=== PATIENT | female | born 1945 | race Caucasian/White ===

== ENCOUNTER 2017-10-29 10:29 | Emergency (ER) | payer MEDICARE, BC ==
[2017-10-29 12:45] LABS: HEMATOCRIT 38.5 % (36.0-47.0); MEAN CORPUSCULAR HEMOGLOBIN 30.2 pg (27.0-33.0); MEAN CORPUSCULAR HGB CONC 33.8 g/dl (32.0-36.5); MEAN CORPUSCULAR VOLUME 89.5 fl (80.0-96.0); PLATELET COUNT, AUTOMATED 220 10^3/uL (150-450); RED CELL DISTRIBUTION WIDTH 13.3 % (11.5-14.5); WHITE BLOOD COUNT 5.2 10^3/uL (4.0-10.0)
[2017-10-29 13:18] LABS: ANION GAP 8 MEQ/L (8-16); BLOOD UREA NITROGEN 17 MG/DL (7-18); CALCIUM LEVEL 9.2 MG/DL (8.8-10.2); CARBON DIOXIDE LEVEL 29 MEQ/L (21-32); CHLORIDE LEVEL 104 MEQ/L (98-107); CREATININE FOR GFR 0.52 MG/DL (0.55-1.30); GLOMERULAR FILTRATION RATE > 60.0 (>39); GLUCOSE, FASTING 92 MG/DL (70-100); POTASSIUM SERUM 3.6 MEQ/L (3.5-5.1); SODIUM LEVEL 141 MEQ/L (136-145)
[2017-10-29] MEDS: SPIRONOLACTONE 25 MG TAB PO (13:38)
[2017-10-29] MEDS: hydroCHLOROthiazide 25 MG TAB PO (13:38)
== END 2017-10-29 14:30 | disposition home or self-care (01) ==
LOC: M ED 10:29
DX: I10 Essential (primary) hypertension (principal); R94.31 Abnormal electrocardiogram [ECG] [EKG]; E78.9 Disorder of lipoprotein metabolism, unspecified; K58.9 Irritable bowel syndrome, unspecified; Z88.8 Allergy status to other drugs, medicaments and biological substances; Z79.899 Other long term (current) drug therapy
CPT/HCPCS: 93005

== ENCOUNTER 2017-11-21 23:01 | Emergency (ER) | payer MEDICARE, BC ==
[2017-11-22] MEDS: NORCO 5/325MG TABLET (BULK FOR ED) PO (01:29)
[2017-11-22] MEDS: NORCO, ANEXSIA 5/325MG TABLET (HYDROcodone/ACETAMINOPHEN) PO (01:29)
== END 2017-11-22 02:10 | disposition home or self-care (01) ==
LOC: M ED 23:01
DX: S82.201A Unspecified fracture of shaft of right tibia, initial encounter for closed fracture (principal); S82.401A Unspecified fracture of shaft of right fibula, initial encounter for closed fracture; X58.XXXA Exposure to other specified factors, initial encounter; Y92.099 Unspecified place in other non-institutional residence as the place of occurrence of the external cause; Y93.9 Activity, unspecified; Y99.9 Unspecified external cause status; I10 Essential (primary) hypertension; K21.9 Gastro-esophageal reflux disease without esophagitis; Z79.899 Other long term (current) drug therapy; Z88.8 Allergy status to other drugs, medicaments and biological substances
CPT/HCPCS: 73590

== ENCOUNTER → 2018-03-18 | Outpatient (CLI) | payer MEDICARE, BC | LOC: M WHC 11:03 | DX: Z12.31 Encounter for screening mammogram for malignant neoplasm of breast (principal); Z78.0 Asymptomatic menopausal state; Z92.89 Personal history of other medical treatment; Z92.23 Personal history of estrogen therapy; Z80.3 Family history of malignant neoplasm of breast | CPT/HCPCS: 77067 ==

== ENCOUNTER 2018-03-24 06:31 | Day surgery (SDC) | payer MEDICARE, BC ==
[2018-03-24] MEDS ORDERED: TETRACAINE 0.5% OPHTH SOLN 4ML As Ordered (06:51)
[2018-03-24] MEDS ORDERED: TOBRADEX OPHTH OINT 3.5 GM As Ordered (06:51)
[2018-03-24] MEDS: LIDOCAINE 3.5 % 1ML OPHTH TOPICAL GEL OU (07:17)
[2018-03-24] MEDS: SODIUM BICARBONATE 8.4% INJ 50MEQ 50 ML VIAL As Ordered (08:16)
[2018-03-24] MEDS: LIDOCAINE 2% W/EPIN INJ 20ML **PRES FREE As Ordered (08:16)
[2018-03-24] MEDS ORDERED: fentaNYL 100 MCG/2 ML INJECTION (J3010) As Ordered (08:18)
[2018-03-24] MEDS ORDERED: PROPOFOL 200 MG/20 ML VIAL As Ordered (08:18)
[2018-03-24] MEDS ORDERED: MIDAZOLAM INJ 2 MG/2 ML VIAL (J2250) As Ordered (08:18)
== END 2018-03-24 09:50 | disposition home or self-care (01) ==
LOC: M SDC 09:50
DX: H02.834 Dermatochalasis of left upper eyelid (principal); H02.831 Dermatochalasis of right upper eyelid; I10 Essential (primary) hypertension; E78.5 Hyperlipidemia, unspecified; K21.9 Gastro-esophageal reflux disease without esophagitis; F41.9 Anxiety disorder, unspecified; S82.201D Unspecified fracture of shaft of right tibia, subsequent encounter for closed fracture with routine healing; S82.401D Unspecified fracture of shaft of right fibula, subsequent encounter for closed fracture with routine healing; R80.9 Proteinuria, unspecified; I72.2 Aneurysm of renal artery; Z88.8 Allergy status to other drugs, medicaments and biological substances; Z79.899 Other long term (current) drug therapy; Z90.710 Acquired absence of both cervix and uterus; Z87.448 Personal history of other diseases of urinary system
CPT/HCPCS: 15823

== ENCOUNTER → 2018-06-17 | Outpatient (CLI) | payer MEDICARE, BC | LOC: M WHC 11:30 | DX: Z13.820 Encounter for screening for osteoporosis (principal); M85.851 Other specified disorders of bone density and structure, right thigh; M85.852 Other specified disorders of bone density and structure, left thigh; M85.88 Other specified disorders of bone density and structure, other site | CPT/HCPCS: 77080 ==

== ENCOUNTER → 2019-02-17 | Outpatient (CLI) | payer MEDICARE, BC ==
[~2019-02-17] MED LIST: ATOR40TA75 PO; CALC-190 PO; CALCLIQ4 PO; KLOR20TA42 PO; MULT1TAB18 PO; NEXI40CA PO; SPIR1TAB34 PO; STEL45IN; VITA100T51 PO; [UNRECOGNIZED DRUG - CODE] SL; [UNRECOGNIZED DRUG - OTHER] IM
--- NOTE | 2019-02-17 13:12 | REPMRS ---
Patient History The patient states she had a clinical breast exam in 02/2019. Family history of breast cancer at age 50 or over in maternal grandmother. Reductions of both breasts, 2005. Took estrogen for 7 years. 3D TOMOSYNTHESIS WAS PERFORMED. [facility] for [facility]%. Digital Woman Screen Mammo: February 17, 2019 - Exam #: [id number] Bilateral CC and MLO view(s) were taken. Technologist: Felecia Chavira, Technologist Prior study comparison: March 18, 2018, bilateral digital woman screen mammo performed at [facility]. 2014, bilateral digital mammo screening bilat, performed at [facility]. FINDINGS: There are scattered fibroglandular densities. There has been no change in the appearance of the mammogram from the prior studies. There is a mild amount of residual fibroglandular tissue which is fairly symmetric. There is no interval development of dominant mass, architectural distortion, or clustered microcalcification suggestive of malignancy. Assessment: BI-RADS/ACR category 1 mammogram. Negative Mammogram. Recommendation Routine screening mammogram in 1 year (for women over age 40). This mammogram was interpreted with the aid of an FDA-approved computer-aided dectection system. Electronically Signed By: Oscar Coy MD 02/17/19 [id number]
== END ==
LOC: M WHC 10:46
PROVIDERS: ATTEND Nurse Practitioner Women's Health
DX: Z12.31 Encounter for screening mammogram for malignant neoplasm of breast (principal); Z80.3 Family history of malignant neoplasm of breast; Z98.890 Other specified postprocedural states; Z92.23 Personal history of estrogen therapy
CPT/HCPCS: 77063; 77067; G0463

== ENCOUNTER 2020-11-19 17:56 | Emergency (ER) | payer MEDICARE, BC ==
[~2020-11-19] VITALS: Ht 160 cm; Wt 68.2 kg
[2020-11-19] MEDS ORDERED: MORPHINE 2 MG/ML 1ML VIAL (J2270) IV ONE (18:50)
--- NOTE | 2020-11-19 19:10 | REP ---
INDICATION: FALL, DEFORMITY COMPARISON: None. TECHNIQUE: Three views left shoulder. FINDINGS: There is a fracture of the left humeral head neck with slight displacement. There is no other evidence of acute fracture or dislocation. IMPRESSION: There is a fracture of the left humeral head neck with slight displacement. <Electronically signed by Oscar Coy > 11/19/20 [id number]
[2020-11-19] MEDS ORDERED: NORCO 5/325MG TABLET (BULK FOR ED) PO ONE (20:10)
[2020-11-19] MEDS ORDERED: NORCO, ANEXSIA 5/325MG TABLET (HYDROcodone/ACETAMINOPHEN) PO ONE (20:10)
[2020-11-19] MEDS ORDERED: HYDR-3715 PO (20:26)
[2020-11-19 20:43] VITALS: BP 169/77
== END 2020-11-19 20:55 | disposition home or self-care (01) ==
LOC: M ED 17:56
DX: S42.212A Unspecified displaced fracture of surgical neck of left humerus, initial encounter for closed fracture (principal); S42.292A Other displaced fracture of upper end of left humerus, initial encounter for closed fracture; W01.0XXA Fall on same level from slipping, tripping and stumbling without subsequent striking against object, initial encounter; Y92.002 Bathroom of unspecified non-institutional (private) residence as the place of occurrence of the external cause; Y93.89 Activity, other specified; Y99.9 Unspecified external cause status; I10 Essential (primary) hypertension; K21.9 Gastro-esophageal reflux disease without esophagitis; Z79.899 Other long term (current) drug therapy; Z88.8 Allergy status to other drugs, medicaments and biological substances
CPT/HCPCS: 73030; 96374; 99284; J2270

== ENCOUNTER → 2021-02-25 | Outpatient (CLI) | payer MEDICARE, BC ==
[~2021-02-25] MED LIST changes: +HYDR-3715 PO
--- NOTE | 2021-02-25 13:17 | DEXAMM ---
INDICATION: M81.0 AGE RELATED OSTEOPOROSIS. COMPARISON: Most recent comparison study is June 17, 2018.. TECHNIQUE: Bone density was measured using dual-energy x-ray absorptionmetry (DEXA). FINDINGS: AP SPINE L1-L4 BMD 1.148 g/cm2 Young Adult T-Score -0.4 Age Matched Z-Score 1.4. LT FEMUR, TOTAL BMD 0.802 g/cm2 Young Adult T-Score -1.6 Age Matched Z-Score 0.0. LT NECK BMD 0.765 g/cm2 Young Adult T-Score -2.0 Age Matched Z-Score -0.1. RT FEMUR, TOTAL BMD 0.808 g/cm2 Young Adult T-Score -1.6 Age Matched Z-Score 0.1. RT NECK BMD 0.745 g/cm2 Young Adult T-Score -2.1 Age Matched Z-Score -0.3. IMPRESSION: There is normal bone density of the spine. There is low bone density of the left hip. There is low bone density of the right hip. The density of the spine has increased 10.4% since the initial exam on April 21, 2001. The density of the spine increased 7.5% since most recent exam on June 17, 2018. The density of the left hip has decreased 14.4% since initial exam on April 21, 2001. The density of the left hip has increased 2.4% since most recent exam on June 17, 2018. The density of the right hip has decreased 16.0% since the initial exam on April 21, 2001. The density of the right hip has increased 8.3% since the most recent exam on June 17, 2018. FOLLOW-UP: Recommendation for the next bone density exam: 2 years. <Electronically signed by Anthony Geronimo > 02/25/21 [id number]
== END ==
LOC: M WHC 12:11
PROVIDERS: ATTEND Internal Medicine Endocrinology, Diabetes & Metabolism
DX: M81.0 Age-related osteoporosis without current pathological fracture (principal)

== ENCOUNTER 2021-11-15 13:18 | Emergency (ER) | payer MEDICARE, BC ==
[~2021-11-15] VITALS: Ht 160 cm; Wt 70.5 kg
[~2021-11-15 13:18] MED LIST changes: -KLOR20TA42 PO; +POTA-141 PO
[2021-11-15] MEDS ORDERED: LISI5TAB11 PO (13:57)
[2021-11-15] MEDS ORDERED: hydrALAZINE 20MG/ML 1ML VIAL (J0360 PER 20MG) IV STA (14:17)
[2021-11-15 14:52] LABS: BASO % 0.4 % (0.0-1.0); HEMATOCRIT 36.9 % (36.0-47.0); HEMOGLOBIN 12.4 g/dl (12.0-15.5); LYMPH # 0.8 10^3/uL (1.5-5.0); LYMPH % 12.2 % (24.0-44.0); MEAN CORPUSCULAR HEMOGLOBIN 30.8 pg (27.0-33.0); MEAN CORPUSCULAR HGB CONC 33.6 g/dl (32.0-36.5); MEAN CORPUSCULAR VOLUME 91.8 fl (80.0-96.0); MONO # 0.4 10^3/uL (0.0-0.8); MONO % 5.1 % (2.0-8.0); NEUTROPHILS # 5.6 10^3/uL (1.5-8.5); NEUTROPHILS % 81.7 % (36.0-66.0); PLATELET COUNT, AUTOMATED 202 10^3/uL (150-450); RED BLOOD COUNT 4.02 10^6/uL (4.00-5.40); WHITE BLOOD COUNT 6.8 10^3/uL (4.0-10.0)
[2021-11-15 15:19] LABS: ALBUMIN 3.9 GM/DL (3.2-5.2); ALT/SGPT 92 U/L (12-78); BILIRUBIN,DIRECT 0.2 MG/DL (0.0-0.2); BILIRUBIN,TOTAL 0.7 MG/DL (0.2-1.0); BLOOD UREA NITROGEN 19 MG/DL (7-18); CALCIUM LEVEL 10.1 MG/DL (8.8-10.2); CARBON DIOXIDE LEVEL 24 MEQ/L (21-32); CHLORIDE LEVEL 106 MEQ/L (98-107); CREATININE FOR GFR 0.53 MG/DL (0.55-1.30); GLOMERULAR FILTRATION RATE > 60.0 (>39); GLUCOSE, FASTING 88 MG/DL (70-100); MAGNESIUM LEVEL 1.4 MG/DL (1.8-2.4); POTASSIUM SERUM 3.9 MEQ/L (3.5-5.1); SODIUM LEVEL 141 MEQ/L (136-145); THYROID STIMULATING HORMONE 0.884 uIU/ML (0.358-3.740); TOTAL PROTEIN 7.9 GM/DL (6.4-8.2)
[2021-11-15 15:23] LABS: RSV AMPLIFICATION NEGATIVE (NEGATIVE)
[2021-11-15] MEDS ORDERED: RISA150P IM (15:27)
[2021-11-15] MEDS ORDERED: ISOVUE-370 76% 100ML VIAL As Ordered ONE (19:42)
[2021-11-15] MEDS ORDERED: lisinopriL 5 MG TAB PO ONE (19:45)
[2021-11-15 21:02] VITALS: BP 177/79
[2021-11-16 02:00] VITALS: BP 114/58
== END 2021-11-16 02:15 | disposition short-term general hospital (02) ==
LOC: M ED 13:18 → EDBD 13:18 → M ED 11-16 02:15
DX: R42 Dizziness and giddiness (principal); I10 Essential (primary) hypertension; I65.01 Occlusion and stenosis of right vertebral artery; I65.23 Occlusion and stenosis of bilateral carotid arteries; I67.1 Cerebral aneurysm, nonruptured; I74.2 Embolism and thrombosis of arteries of the upper extremities; R90.82 White matter disease, unspecified; E78.5 Hyperlipidemia, unspecified; K21.9 Gastro-esophageal reflux disease without esophagitis; Z79.899 Other long term (current) drug therapy
CPT/HCPCS: 36415; 70450; 70496; 70498; 70544; 70551; 71045; 80048; 80076; 83735; 84443; 85025; 86618; 87631; 93005; 93041; 94760; 96374; 99285; J0360; Q9967

== ENCOUNTER → 2022-04-09 | Outpatient (CLI) | payer MEDICARE, BC ==
[~2022-04-09] MED LIST changes: +LISI5TAB11 PO; +RISA150P IM
== END ==
LOC: M WHC 15:00
PROVIDERS: ATTEND Nurse Practitioner Family
DX: Z12.31 Encounter for screening mammogram for malignant neoplasm of breast (principal); Z78.0 Asymptomatic menopausal state

== ENCOUNTER → 2022-06-13 | Outpatient (CLI) | payer MEDICARE, BC | LOC: M RAD 08:47 | PROVIDERS: ATTEND Neurological Surgery | DX: I67.1 Cerebral aneurysm, nonruptured (principal) ==

== ENCOUNTER → 2022-09-29 | Outpatient (CLI) | payer MEDICARE, BC | LOC: M RAD 10:43 | DX: R10.9 Unspecified abdominal pain (principal); R93.5 Abnormal findings on diagnostic imaging of other abdominal regions, including retroperitoneum ==

== ENCOUNTER → 2023-02-27 | Outpatient (CLI) | payer MEDICARE, BC | LOC: M WHC 12:43 | PROVIDERS: ATTEND Nurse Practitioner Family | DX: Z78.0 Asymptomatic menopausal state (principal) ==

== ENCOUNTER → 2023-11-02 | Outpatient (CLI) | payer MEDICARE, BC | LOC: M WHC 13:39 | PROVIDERS: ATTEND Nurse Practitioner Family | DX: Z12.31 Encounter for screening mammogram for malignant neoplasm of breast (principal) ==

== ENCOUNTER 2025-05-12 14:52 | Emergency (ER) | payer MEDICARE, BC ==
[~2025-05-12] VITALS: Ht 160 cm; Wt 69.0 kg
[2025-05-12 15:34] LABS: BASO # 0.0 10^3/uL (0.0-0.2); BASO % 0.2 % (0.0-1.0); EOS # 0.0 10^3/uL (0.0-0.5); EOS % 0.0 % (0.0-3.0); LYMPH # 0.6 10^3/uL (1.5-5.0); LYMPH % 6.9 % (24.0-44.0); MONO # 0.1 10^3/uL (0.0-0.8); MONO % 1.1 % (2.0-8.0); NEUTROPHILS # 8.4 10^3/uL (1.5-8.5); NEUTROPHILS % 91.5 % (36.0-66.0); PLATELET COUNT, AUTOMATED 219 10^3/uL (150-450)
[2025-05-12] MEDS: ASPIRIN 81 MG CHEWABLE TABLET PO ONE (15:50)
[2025-05-12 15:51] VITALS: BP 140/63
[2025-05-12] MEDS: NITROGLYCERIN 0.4 MG SUBL TABLET SL PRN (15:51)
[2025-05-12 16:04] LABS: ALT/SGPT 27 U/L (7.0-40); AST/SGOT 32 U/L (<34); CALCIUM LEVEL 9.2 MG/DL (8.3-10.6); CARBON DIOXIDE LEVEL 28 MMOL/L (20-31); CHLORIDE LEVEL 96 MMOL/L (98-107); CPK CREATINE PHOSPHOKINASE 38 U/L (34-145); CREATININE FOR GFR 0.70 MG/DL (0.55-1.30); GLOMERULAR FILTRATION RATE 89.0 (>39); POTASSIUM SERUM 3.5 MMOL/L (3.5-5.1); SODIUM LEVEL 137 MMOL/L (136-145)
[2025-05-12] MEDS ORDERED: ISOVUE-370 76% 100 ML VIAL As Ordered ONE (16:48)
[2025-05-12 16:51] LABS: CK-MB VALUE MASS < 1.0 NG/ML (<3.6); CPK CREATINE PHOSPHOKINASE 30 U/L (34-145)
[2025-05-12 17:04] LABS: CK-MB VALUE MASS < 1.0 NG/ML (<3.6)
[2025-05-12 17:09] LABS: FREE T4 1.70 NG/DL (0.89-1.76)
[2025-05-12 19:15] VITALS: BP 121/63; TEMP 97.5; O2SAT 95
== END 2025-05-12 19:26 | disposition home or self-care (01) ==
LOC: M ED 14:52
DX: R07.9 Chest pain, unspecified (principal); I10 Essential (primary) hypertension; F10.10 Alcohol abuse, uncomplicated; Z88.5 Allergy status to narcotic agent; Z79.899 Other long term (current) drug therapy
CPT/HCPCS: 36415; 71045; 71275; 80047; 80048; 80076; 82550; 82553; 83690; 83880; 84439; 84443; 84484; 85025; 87486; 87581; 87633; 87798; 93005; 93041; 94760; 99285; Q9967